=== PATIENT | male | born 1980 | race Caucasian/White ===

== ENCOUNTER 2016-08-26 11:10 | Day surgery (SDC) | payer OTHER, SELFPAY ==
--- NOTE | ~2016-08-26 | EGD ---
EGD REPORT [facility] [address] [address] NAME: RL VAZQUEZ : [birth year] STATUS : REG [facility]#: [id number] AGE: 35 ADM/REG DATE : 08/26/16 MR#: [id number] REPORT SERV DATE: 08/26/16 DICTATED BY: GROVER LIAO DATE: 08/26/16 REPORT STATUS : Draft [facility]ANS[facility]IBED [facility]: [facility] DATE: 08/26/16 Endoscopy Center Patient Name: Rl Vazquez. Date of : 1980 Attending MD: GROVER LIAO MD Procedure Date No Time: 08/26/2016 Procedure: Colonoscopy Indications: Hematochezia Medicines: Propofol per Anesthesia Complications: No immediate complications. Estimated blood loss: None. Procedure: Pre-Anesthesia Assessment: - After reviewing the risks and benefits, the patient was deemed in satisfactory condition to undergo the procedure. - Prior to the procedure, a History and Physical was performed, and patient medications and allergies were reviewed. The patient's tolerance of previous anesthesia was also reviewed. The risks and benefits of the procedure and the sedation options and risks were discussed with the patient. All questions were answered, and informed consent was obtained. Prior Anticoagulants: The patient has taken no previous anticoagulant or antiplatelet agents. ASA Grade Assessment: II - A patient with mild systemic disease. After reviewing the risks and benefits, the patient was deemed in satisfactory condition to undergo the procedure. After I obtained informed consent, the scope was passed under direct vision. Throughout the procedure, the patient's blood pressure, pulse, and oxygen saturations were monitored continuously. The CF [id number] was introduced through the anus and advanced to the cecum, identified by appendiceal orifice and ileocecal valve. The colonoscopy was somewhat difficult due to the patient's body habitus. The ileocecal valve and appendiceal orifice were photographed. The patient tolerated the procedure well. The quality of the bowel preparation was excellent. The bowel preparation used was split dose polyethylene glycol (PEG). Scope withdrawal time was greater than 6 minutes. Findings: The perianal and digital rectal examinations were normal. Pertinent negatives include normal sphincter tone. Non-bleeding internal hemorrhoids were found during retroflexion and were small and Grade I (internal hemorrhoids that do not prolapse). EGD REPORT [address] [address] NAME: RL VAZQUEZ : [birth year] STATUS : REG [facility]#: [id number] AGE: 35 ADM/REG DATE : 08/26/16 MR#: [id number] REPORT SERV DATE: 08/26/16 DICTATED BY: GROVER LIAO DATE: 08/26/16 REPORT STATUS : Draft [facility]ANS[facility]IBED BY: [facility] DATE: 08/26/16 The exam was otherwise without abnormality. Impression: - Non-bleeding internal hemorrhoids. - The examination was otherwise normal. Recommendation: - Discharge patient to home (ambulatory). - Resume previous diet. - Begin Anusol HC rectal suppositories twice daily for 2 weeks. - Use Tucks pads after BM's and as needed. - If rectal seepage persists, begin Metamucil one tablespoon at bedtime. - Return to GI clinic PRN. - Repeat colonoscopy at age 52 for screening purposes. - Patient has a contact number available for emergencies. The signs and symptoms of potential delayed complications were discussed with the patient. Return to normal activities tomorrow. Written discharge instructions were provided to the patient. Procedure Code(s): --- Professional --- 66682, Colonoscopy, flexible, proximal to splenic flexure; diagnostic, with or without collection of specimen(s) by brushing or washing, with or without colon decompression (separate procedure) Diagnosis Code(s): --- Professional --- K64.0, First degree hemorrhoids K92.1, Melena CPT copyright 2013 [employer]. All rights reserved. The codes documented in this report are preliminary and upon slicing machine tender review may be revised to meet current compliance requirements. GROVER LIAO MD 08/26/2016 1:58 PM This report has been signed electronically. Number of Addenda: 0 Note Initiated On: 08/26/2016 1:33 PM Scope Withdrawal Time 0 hours 6 minutes 23 seconds [id number] [place] [address] [place] [id number]
== END 2016-08-26 23:59 | disposition home or self-care (01) ==
LOC: DMU 11:10
PROVIDERS: Internal Medicine Gastroenterology
PROC: 0DJD8ZZ Inspection of Lower Intestinal Tract, Via Natural or Artificial Opening Endoscopic (ICD-10-PCS; principal; 2016-08-26 12:30)
DX: K92.1 Melena (principal); K64.0 First degree hemorrhoids; E66.01 Morbid (severe) obesity due to excess calories; G47.33 Obstructive sleep apnea (adult) (pediatric); Z79.899 Other long term (current) drug therapy; Z98.890 Other specified postprocedural states